=== PATIENT | male | born 1990 | race Caucasian/White ===

== ENCOUNTER 2025-09-02 13:20 | Emergency (ER) | payer OTHER ==
[2025-09-02] MEDS ORDERED: Boostrix 0.5 ML (Tdap) VIAL (>/=7 yrs of age) ONE (13:43)
[2025-09-02] MEDS ORDERED: Bacitracin 1 PK ONE (13:43)
[2025-09-02] MEDS ORDERED: Ciprofloxacin 500 MG TAB ONE (13:43)
== END 2025-09-02 14:00 | disposition home or self-care (01) ==
LOC: MADERS 13:20
DX: S91.331A Puncture wound without foreign body, right foot, initial encounter (principal); I25.10 Atherosclerotic heart disease of native coronary artery without angina pectoris; W45.0XXA Nail entering through skin, initial encounter; Y99.0 Civilian activity done for income or pay
CPT/HCPCS: 90471; 90715